=== PATIENT | female | born 1950 | race Caucasian/White ===

== ENCOUNTER 2022-10-11 11:37 | Outpatient (REF) | payer OTHER, SELFPAY ==
[2022-10-11 13:48] LABS: MANUAL DIFF FLAG NO
[2022-10-11 14:01] LABS: Basophils Percent Auto 0.5 % (0-2); Eosinophils Percent Auto 0.1 % (0-4); Hematocrit 38.4 % (37.0-47.0); Hemoglobin 13.1 g/dl (12.0-16.0); Imm Gran Abs Auto 0.03 X10*3/uL (0.00-0.03); Imm Gran Pct Auto 0.3 % (0.0-0.4); Lymphocytes Percent Auto 11.9 % (20-40); Mean Corpuscular HGB Conc 34.1 g/dl (31.0-35.0); Mean Corpuscular Hemoglobin 26.9 pg (27.0-33.0); Mean Corpuscular Volume 78.9 fL (80.0-98.0); Mean Platelet Volume 9.2 fL (9.4-12.3); Monocytes Absolute Auto 0.5 X10*3/uL (0.1-1.2); Monocytes Percent Auto 5.6 % (2-11); Neutrophils Absolute Auto 7.2 x10*3/uL (2.0-8.3); Neutrophils Percent Auto 81.6 % (45-73); Platelet Count 467 X10*3/uL (160-400); Red Blood Count 4.87 X10*6/uL (4.20-5.50); Red Cell Distribution Width 12.2 % (11.0-16.0); White Blood Count 8.8 X10*3/uL (4.8-10.8)
[2022-10-11 14:35] LABS: Alanine Aminotransferase 21 U/L (0-31); Albumin Level 4.5 g/dL (3.5-5.0); Alkaline Phosphatase 114 U/L (39-117); Amylase 61 U/L (28-100); Anion Gap 18 (12-20); Aspartate Amino Transferase 22 U/L (5-31); Bilirubin Total 0.8 mg/dL (0.0-1.0); Blood Urea Nitrogen 10 mg/dL (9-16); C Reactive Protein 0.46 mg/dL (< or = 0.50); Calcium 10.6 mg/dL (8.4-10.2); Carbon Dioxide 24 mmol/L (22-29); Chloride 86 mmol/L (96-108); Estimated Glomerular Filt Rate > 60; Gamma Glutamyl Transpeptidase 75 U/L (7-33); Glucose Random 115 mg/dL (60-115); Iron 40 mcg/dL (30-160); Lipase 62 U/L (8-78); Percent Iron Saturation 12 % (15-50); Potassium 4.8 mmol/L (3.3-5.1); Sodium 123 mmol/L (135-145); Total Iron Binding Capacity 329 mcg/dL (228-428); Total Protein 7.8 g/dL (6.5-8.0); Unsaturated Iron Binding 289 ug/dL
[2022-10-11 14:40] LABS: Ferritin 218 ng/mL (10-250)
[2022-10-11 14:51] LABS: Erythrocyte Sedimentation Rate 10 MM/HR (0-20)
== END 2022-10-11 11:38 | disposition home or self-care (01) ==
LOC: HO.MANLDS 11:37
PROVIDERS: Visit Provider Physician Assistant
DX: R10.13 Epigastric pain (principal)
CPT/HCPCS: 36415; 80053; 82150; 82728; 82977; 83540; 83690; 85025; 85652; 86140